=== PATIENT | female | born 1980 | race Caucasian/White ===

== ENCOUNTER 2016-09-10 20:44 | Inpatient (IN) | payer OTHER ==
--- NOTE | ~2016-09-10 | PA ---
Unit #: [id number] #: [id number] Patient: WAYNE CORTES [id number] [facility] [place] [address] [id number] I MR#: [id number] NAME: WAYNE CORTES ROOM: [facility] Age: 36 Sex: F Admission Date: 09/10/2016 : 1980 Date of Assessment: Attending Physician: Riki Camarillo M.D. Admitting Physician: Riki Camarillo M.D. Primary Care Physician: Primary Care Physician No PSYCHIATRIC ASSESSMENT INFORMANT The patient, reliability poor; chart, reliability good. CHIEF COMPLAINT Substance abuse, history of addiction. HISTORY OF PRESENT ILLNESS Ms. Darron Cortes is a 36-year-old female. The patient has a history of inpatient treatment at [facility] krysten Anderson, opioid replacement therapy, inpatient at [facility], lives with boyfriend and his mother. The patient presented with polysubstance abuse, presented with opioid withdrawal, reported going to methadone clinic for several months, and recently inpatient at [facility] on medical floor having seizure and sustaining a skull injury and resulted in craniotomy. The patient was discharged from [facility] on 09/03/2016. The patient received last dose of methadone there. The patient has been off her methadone and taking her prescription painkiller. The patient reports she was prescribed in [facility] after surgery. The patient was using heroin off the street. The patient reported last use of opioids 3 days ago. The patient reported withdrawal symptoms such as restlessness, muscle pain, sweating, piloerection of arm, cold sweats, depressed mood, poor concentration, but denied any suicidal or homicidal ideation or psychotic symptom needing inpatient admission at this time for psychiatric stabilization. PAST PSYCHIATRIC HISTORY Remarkable for history of previous inpatient treatment in 2009 at [facility], opioid replacement therapy in 2017, methadone clinic, inpatient at [facility], inpatient at [facility]. FAMILY HISTORY AND SOCIAL HISTORY The patient lives with boyfriend. No history of any abuse. Family psychiatric illness is remarkable for history of substance abuse in other family members. MEDICAL HISTORY Remarkable for history of sustaining head injury resulted in craniotomy, history of seizure. Musculoskeletal; muscle strength and tone, no atrophy or abnormal movement. Gait abnormal and walks with the help of a walker. MEDICATION HISTORY The patient is on Keppra 500 mg b.i.d. and ibuprofen. Unit #: [id number] #: [id number] Patient: WAYNE CORTES ALLERGIES No known drug allergies. SUBSTANCE ABUSE HISTORY The patient reported tobacco use, age of onset 13; alcohol, age of onset 13; opioid, age of onset 18; amphetamine, age of onset 18; prescription medication, age of onset 16; methadone, age of onset 22. The patient reported abdominal cramping, diarrhea, depressed mood, headache, restlessness, history of blackout, history of withdrawal symptoms, history of IV drug use. REVIEW OF SYSTEMS HEENT: Eyes clear. Ears, nose, mouth, and throat clear. CARDIOVASCULAR: Unremarkable. RESPIRATORY: Unremarkable. GI: Unremarkable. : Unremarkable. SKIN: Unremarkable. LYMPH NODE: Unremarkable. NEUROLOGIC: Unremarkable. ENDOCRINE: Unremarkable. HEMATOLOGIC: Unremarkable. ALLERGIC: Unremarkable IMMUNOLOGIC: Unremarkable. MUSCULOSKELETAL: Muscle strength and tone, no atrophy or abnormal movement. Gait abnormal. MENTAL STATUS EXAMINATION CONSTITUTIONAL: Measurement of vital signs; temperature 98.5, pulse 91, respiratory rate 16, and blood pressure 89/54. GENERAL APPEARANCE: The patient dressed casually. Hygiene and grooming, poor. No facial deformity noted. PSYCHIATRIC EXAMINATION Description of speech, slow. Description of thought process, circumstantial. Description of association, guarded and paranoid, but denied any thoughts of harming self or others. Description of the patient's judgment concerning everyday activity, poor, social situation poor, concerning psychiatric condition poor. Complete mental status examination: Oriented in time, place, and person. Attention span and concentration, poor. Able to repeat object. Fund of knowledge, poor. Vocabulary poor. Mood and affect, sad and dysphoric. Insight and judgment, poor. ASSETS AND LIABILITIES Assets: The patient is articulate, able to take care of her ADL. Liability: History of substance abuse and depression. ADMITTING DIAGNOSES Psychiatric: Opioid use disorder, severe, F11.20. Mood disorder, not otherwise specified, F32.9. Secondary Diagnosis: Deferred. Medical Diagnosis: History of seizures, skull fracture, hepatitis C. Stressors: Psychosocial stressors. Unit #: [id number] #: [id number] Patient: WAYNE CORTES PSYCHIATRIC PLAN, TREATMENT GOAL, AND DISCHARGE PLAN 1. Advised to admit the patient on the inpatient unit. Provide safe, supportive, and structured environment. 2. Ordered labs; CBC, CMP, UA, UDS. 3. Precaution for seizure, detox protocol, detox monitoring. 4. If needed, consider further adjustment of medication. The patient is to attend all the programing on the inpatient unit. Treatment goal is to attain euthymic mood and complete detox. DISCHARGE PLAN Plan to stabilize the patient and consider program such as [facility]. ESTIMATED LENGTH OF STAY 3 to 5 days. Dictated by... Riki Camarillo M.D. SUNIL/jean carlos TD: 09/12/2016 04:17 JOB #: [id number] PSYCHIATRIC ASSESSMENT X Riki Camarillo MD PSYCHIATRIC ASSESSMENT
--- NOTE | ~2016-09-10 | DS ---
Unit #: [id number] #: [id number] Patient: WAYNE MORAN [id number] [facility] [address] [place] [address] [id number] I MR#: [id number] NAME: WAYNE MORAN. ROOM: [facility] Age: 36 Sex: F Admission Date: 09/10/2016 : 1980 Discharge Date: 09/12/2016 Attending Physician: Riki Camarillo M.D. Primary Care Physician: Primary Care Physician No DISCHARGE SUMMARY REASON FOR ADMISSION Detox from opioid and depression. DIAGNOSTIC STUDIES LABORATORY RESULTS: Remarkable for albumin 3.3. Hemoglobin 10.7. Urine drug screen positive for opioid. HOSPITAL COURSE The patient was admitted to inpatient unit on 09/10/2016 and discharged on 09/12/2016. The patient was treated on the inpatient unit with detox protocol, expressive therapy, chemical dependency group, and occupation therapy. The patient responded well with the above modalities of treatment. Subsequently, the patient was discharged with a plan to follow up in outpatient program and the patient was requested to follow up through [facility]. DISCHARGE MEDICATIONS Keppra 500 mg b.i.d. for seizure. DISCHARGE DIAGNOSES Psychiatric: 1. Opioid use disorder, severe, F11.20. 2. Mood disorder, not otherwise specified, F32.9. Secondary diagnosis: Deferred. Medical diagnoses: History of seizure, skull fracture, hepatitis C. Stressors: Psychosocial stressors. DISCHARGE INSTRUCTIONS The patient is to follow up in outpatient clinic as per psychiatric social worker supervisor. CONDITION ON DISCHARGE The patient was pleasant and cooperative. Denied any thoughts of harming self or others or any psychotic symptom. DIET AND ACTIVITY As tolerated. Dictated by... Riki Camarillo M.D. Unit #: [id number] #: [id number] Patient: WAYNE MORAN SZC/modl TD: 09/12/2016 22:01 JOB #: [id number] DISCHARGE SUMMARY X Riki Camarillo MD X DISCHARGE SUMMARY
--- NOTE | ~2016-09-10 | CO ---
Unit #: [id number] #: [id number] Patient: ALEXUS MORAN [id number] [place] [address] [id number] I MR#: [id number] NAME: ALEXUS MORAN ROOM: [facility] Age: 36 Sex: F Admission Date: 09/10/2016 : 1980 Attending Physician: Riki Camarillo M.D. Primary Care Physician: Primary Care Physician No Consultation Date: 09/11/2016 CONSULTATION REPORT SUBJECTIVE Alexus is a 36-year-old admitted because of her drug use, which included IV heroin. She gave history of cranial surgery on 08/31/2016 after she sustained a fractured skull. She is complaining of pain at the surgical site. We have been asked to assess and give recommendations. OBJECTIVE GENERAL: Alert, well nourished, in no apparent distress. VITAL SIGNS: Blood pressure 120/70, heart rate 80, respirations 16, and T-max 98.6. HEENT: Normocephalic except she does have a significant surgical scar along the left sikh extending to behind her ear. The area is well healed. Sutures/randell have been removed. There is no increased redness, swelling, heat, or pus noted. ASSESSMENT Pain along a surgical site that is 10 days old. PLAN She has ibuprofen already ordered and should continue this p.r.n. Dictated by... Leila Bowen P.A.-C. for Susana Romero/jean carlos TD: 09/17/2016 21:16 JOB #: [id number] CONSULTATION REPORT X Leila Bowen X CONSULTATION REPORT
--- NOTE | ~2016-09-10 | HP ---
Unit #: [id number] #: [id number] Patient: ALEXUS MORAN [id number] [place] [address] [id number] I MR#: [id number] NAME: ALEXUS MORAN ROOM: 74 Age: 36 Sex: F Admission Date: 09/10/2016 : 1980 Attending Physician: Riki Camarillo M.D. Admitting Physician: Riki Camarillo M.D. Primary Care Physician: Primary Care Physician No HISTORY AND PHYSICAL HISTORY OF PRESENT ILLNESS Alexus is a 36 year old, admitted to [facility] because of her continued polysubstance abuse, which includes IV heroin. PAST MEDICAL HISTORY 1. Long history of opioid abuse to include IV heroin. 2. History of withdrawal seizures. PAST SURGICAL HISTORY 1. section x1. 2. Cranial surgery, 08/31/2016 after she sustained a fractured skull. ALLERGIES No known drug allergies. SOCIAL HISTORY She smokes on occasion, drinks alcohol, occasionally admits to long history of illicit substance abuse to include IV heroin. FAMILY HISTORY Medically noncontributory. REVIEW OF SYSTEMS CONSTITUTIONAL: No fever or chills. HEENT: Denies any sore throat, ear pain or runny nose. CARDIOVASCULAR: Denies chest pain, irregular heart rhythm or palpitations. CHEST: Denies shortness of breath or cough. No hemoptysis. GASTROINTESTINAL: Denies nausea, vomiting, diarrhea or chronic constipation. ENDOCRINE: Denies history of increased thirst or urination. No recent significant weight loss or gain. GENITOURINARY: Denies dysuria, frequency, or hematuria. SKIN: Denies any rashes. HEMATOLOGIC: Denies history of increased bleeding or bruising. MUSCULOSKELETAL: Denies any hot, swollen joints. No generalized muscle pain. NEUROLOGIC: Denies problems with vision or speech. No frequent, severe headaches. No numbness, tingling or weakness in any extremities. Denies loss of bladder or bowel control. CURRENT MEDICATIONS 1. Detox protocol 2. Keppra 500 mg b.i.d. Unit #: [id number] #: [id number] Patient: ALEXUS MORAN 3. Ibuprofen 800 mg q.8h p.r.n. 4. Genaced two tablets q.6h p.r.n. PHYSICAL EXAMINATION GENERAL: Alert, well-nourished, and no apparent distress. VITAL SIGNS: Blood pressure 100/60, heart rate 80, respirations 16, and temperature 98.6. WEIGHT: 115 pounds. HEIGHT: 5 feet 11 inches. SKIN: Warm and dry without rash or lesion. HEENT: Normocephalic except she has significant surgical scar along the left baptism extending to behind her ear. The area is well healed. Sutures/randell have been removed. NECK: Supple without lymphadenopathy or thyromegaly. HEART: Regular rate and rhythm without murmur. LUNGS: Clear. ABDOMEN: Soft, nontender. : Not done. EXTREMITIES: No evidence of cyanosis, clubbing or edema. Moves all without focal deficit. NEUROLOGICAL: Grossly within normal limits. Cranial Nerves: II: Visual burnham are intact. III, IV AND : Extraocular movements are intact. Pupils are equal, round and reactive to light. V: Facial sensation is grossly normal. VII: Facial movements and expression are normal. VIII: Auditory acuity grossly intact. IX, X: Uvula is midline. Phonation is normal. XI: Patient shrugs shoulders and turns head normally. XII: Tongue protrudes in the midline. Sensory and Motor Function: Sensory and motor sensation is grossly normal. Motor: moves all extremities well. Coordination: Gait is normal. Deep Tendon Reflexes: Intact. IMPRESSION Psychiatric admission. RECOMMENDATIONS Psychiatric, per psychiatrist. MEDICAL I see no contraindications to participating in facility's activities. MEDICAL PROGNOSIS Good. MEDICAL CONDITION Stable. Dictated by... Leila Bowen P.A.-C. for Susana Romero/dania TD: 09/12/2016 05:01 JOB #: [id number] Unit #: [id number] #: [id number] Patient: ALEXUS MORAN HISTORY AND PHYSICAL X Leila Bowen HISTORY AND PHYSICAL
[~2016-09-10 20:44] MED LIST: ALPRAZOLAM PO; AUGMENTIN PO; BACTRIM DS TABL1 TA1 PO; MOTRIN400 MG PO
[2016-09-11 09:38] LABS: BASOPHIL% 0.7 % (0-2.5); EOSINOPHIL# 0.2 X10e3 (0-0.7); EOSINOPHIL% 2.8 % (0.0-7.0); HEMATOCRIT 32.9 % (35.0-45.0); HEMOGLOBIN 10.7 gm/dL (12.0-16.0); LYMPHOCYTE# 1.7 X10e3 (1.0-3.5); LYMPHOCYTE% 29.5 % (17.0-45.0); MEAN CELL VOLUME 90.1 FL (83-96); MEAN CORPUSCULAR HEMOGLOBIN 29.3 PG (28-34); MEAN CORPUSCULAR HGB CONC 32.5 g/dL (30-36); MEAN PLATELET VOLUME 9.6 FL (6.5-11.5); MONOCYTE# 0.5 X10e3 (0-1.0); MONOCYTE% 8.9 % (3.0-12.0); NEUTROPHIL# 3.4 X10e3 (1.5-7.1); NEUTROPHIL% 58.1 % (40-75); PLATELET COUNT 344 X10e3 (140-420); RED BLOOD COUNT 3.65 X10e (3.90-5.30); RED CELL DISTRIBUTION WIDTH 16.6 % (11.0-15.5); WHITE BLOOD COUNT 5.9 X10e3 (4.0-10.5)
[2016-09-11 09:59] LABS: DIFF IND NO
[2016-09-11 10:02] LABS: THYROID STIMULATING HORMONE 1.29 uIU/ml (0.34-5.60)
[2016-09-11 10:07] LABS: ALBUMIN SERUM 3.3 g/dL (3.5-5.0); ALKALINE PHOSPHATASE 72 U/L (32-92); ALT (SGPT) 12 U/L (10-40); AST (SGOT) 17 U/L (10-42); BILIRUBIN,TOTAL 0.5 mg/dL (0.2-2.0); BLOOD UREA NITROGEN 12 mg/dL (9-23); CALCIUM SERUM 9.6 mg/dL (8.4-10.2); CARBON DIOXIDE 24 mmol/L (22-31); CHLORIDE 105 mmol/L (100-111); CREATININE SERUM 0.8 mg/dL (0.6-1.4); GLOM FILT RATE Estimated ABOVE60 mL/min (>60); GLUCOSE FASTING 92 mg/dL (70-110); POTASSIUM 3.9 mmol/L (3.5-5.1); SODIUM 141 mmol/L (135-145)
[2016-09-11 10:15] LABS: FREE THYROXIN (T4) 0.85 ng/dL (0.58-1.64)
== END 2016-09-12 11:00 | disposition home or self-care (01) | DRG 897 ==
LOC: P1E 20:44
PROVIDERS: Psychiatry & Neurology Psychiatry
DX: F11.20 Opioid dependence, uncomplicated (principal); F39 Unspecified mood [affective] disorder; F17.210 Nicotine dependence, cigarettes, uncomplicated
CPT/HCPCS: 80053; 84439; 84443; 84703; 85025; 86592

== ENCOUNTER 2016-12-16 17:51 | Inpatient (IN) | payer OTHER ==
--- NOTE | ~2016-12-16 | DS ---
Unit #: [id number] #: [id number] Patient: WAYNE MORAN [id number] [facility] [address] [place] [address] [id number] I MR#: [id number] NAME: WAYNE MORAN. ROOM: [facility] Age: 36 Sex: F Admission Date: 12/16/2016 : 1980 Discharge Date: 12/20/2016 Attending Physician: Riki Camarillo M.D. Primary Care Physician: Generic Doctor Not In System DISCHARGE SUMMARY REASON FOR ADMISSION Depression. DIAGNOSTIC STUDIES LABORATORY RESULTS: Albumin 3.4, AST 91, and ALT 94. HOSPITAL COURSE The patient was admitted to inpatient unit on 12/16/2016 and discharged on 12/20/2016. The patient was treated on the inpatient unit with group therapy, individual therapy, and medication management. The patient responded well with the above modalities of treatment. The patient was subsequently discharged with a plan to follow up in outpatient clinic. DISCHARGE MEDICATIONS Keppra 500 mg b.i.d. for seizure and Celexa 20 mg daily for depression. DISCHARGE DIAGNOSES Psychiatric: 1. Major depressive disorder, recurrent, severe, F33.2. 2. Alcohol use disorder, severe, F10.20. 3. Opioid use disorder, severe, F11.20. Secondary diagnosis: Deferred. Medical diagnoses: 1. History of seizure disorder. 2. Hepatitis C. Stressors: Psychosocial stressors. DISCHARGE INSTRUCTIONS The patient is to follow up in outpatient clinic as per social sciences chair. CONDITION ON DISCHARGE The patient was pleasant and cooperative. Denied any psychotic symptom or any suicidal ideation. PROGNOSIS Guarded. DIET AND ACTIVITY As tolerated. Dictated by... Unit #: [id number] #: [id number] Patient: WAYNE MORAN Susana Paz/jean carlos TD: 12/21/2016 04:03 JOB #: [id number] DISCHARGE SUMMARY Page 1 of 1 X Riki Camarillo MD DISCHARGE SUMMARY
--- NOTE | ~2016-12-16 | PN ---
Unit #: [id number] #: [id number] Patient: WAYNE MORAN [id number] [facility] [address] [place] [address] [id number] I MR#: [id number] NAME: WAYNE MORAN. ROOM: 83 Age: 36 Sex: F Admission Date: 12/16/2016 : 1980 Attending Physician: Riki Camarillo M.D. Admitting Physician: Riki Camarillo M.D. Primary Care Physician: Generic Doctor Not In System [facility] PROGRESS NOTES DATE 12/18/2016 DISCUSSION Ms. Vaughan is a 36-year-old female seen on 12/18/2016. Patient interviewed. Chart reviewed. Obtained information from nursing staff. Patient compliant, cooperative, able to maintain safe behavior. Complete review of system unremarkable. MENTAL STATUS EXAMINATION General appearance, patient dressed casually. Attention span, concentration fair. Oriented in place and person. Mood and affect labile. Speech monotone. Thought process concrete. Patient denied any thoughts of harming self or others. Recent and remote memory poor. Insight and judgement poor. DIAGNOSIS Mood disorder NOS. ASSESSMENT/PLAN Advised to continue with current medication and therapeutic protocol. If needed, consider further adjustment of medication. Dictated by... Susana Paz/francesca TD: 12/19/2016 20:18 JOB #: [id number] Unit #: [id number] #: [id number] Patient: WAYNE MORAN [facility] PROGRESS NOTES Page 1 of 1 X Riki Camarillo MD X PROGRESS NOTE
--- NOTE | ~2016-12-16 | PN ---
Unit #: [id number] #: [id number] Patient: ALEXUS CORTES [id number] [facility] [address] [place] [address] [id number] I MR#: [id number] NAME: ALEXUS CORTES. ROOM: [facility] Age: 36 Sex: F Admission Date: 12/16/2016 : 1980 Attending Physician: Riki Camarillo M.D. Admitting Physician: Riki Camarillo M.D. Primary Care Physician: Generic Doctor Not In System [facility] PROGRESS NOTES DATE OF SERVICE 12/19/16 DISCUSSION Ms. Alexus Cortes is a 36-year-old female seen on 12/19/16. Patient interviewed, chart reviewed. I obtained information from nursing staff. Patient compliant, cooperative. Patient was scheduled to be discharged but then reported that she is having suicidal ideation. Subsequently, discharge was postponed. COMPLETE REVIEW OF SYSTEMS Unremarkable. MENTAL STATUS EXAMINATION GENERAL APPEARANCE: Patient dressed casually. ATTENTION SPAN AND CONCENTRATION: Fair. Oriented in place and person. MOOD AND AFFECT: Sad, dysphoric. SPEECH: Monotone. THOUGHT PROCESS: Jones. Patient denied any thoughts of harming others, but mentioned having thoughts of harming herself, therefore discharge canceled. RECENT AND REMOTE MEMORY: Poor. INSIGHT AND JUDGMENT: Poor. DIAGNOSES Major depressive disorder, recurrent Alcohol use disorder, severe ASSESSMENT/PLAN Advised to continue with current medication and therapeutic protocol. If needed, consider further adjustment in medication. Consider discharge tomorrow. Dictated by... Susana Paz/jillian TD: 12/20/2016 23:06 Unit #: [id number] #: [id number] Patient: ALEXUS CORTES JOB #: [id number] [facility] PROGRESS NOTES Page 1 of 1 X Riki Camarillo MD PROGRESS NOTE
--- NOTE | ~2016-12-16 | HP ---
Unit #: [id number] #: [id number] Patient: ALEXUS MORAN [id number] [place] [address] [id number] I MR#: [id number] NAME: ALEXUS MORAN ROOM: [facility] Age: 36 Sex: F Admission Date: 12/16/2016 : 1980 Attending Physician: Riki Camarillo M.D. Admitting Physician: Riki Camarillo M.D. Primary Care Physician: Generic Doctor Not In System HISTORY AND PHYSICAL HISTORY OF PRESENT ILLNESS Alexus is a 36 year old admitted to [facility] because of her continued polysubstance abuse which includes heroin and alcohol. She has had other admissions to this facility for the same. PAST MEDICAL HISTORY 1. Long history of illicit substance abuse to include IV heroin. 2. History of withdrawal seizures. PAST SURGICAL HISTORY 1. x1. 2. Cranial surgery, 08/31/2016 after a skull fracture. ALLERGIES No known drug allergies. SOCIAL HISTORY Smokes on occasion. Drinks alcohol frequently to excess and admits to a history of illicit substance abuse to include IV heroin. FAMILY HISTORY Medically noncontributory. REVIEW OF SYSTEMS CONSTITUTIONAL: No fever or chills. HEENT: Denies any sore throat, ear pain or runny nose. CARDIOVASCULAR: Denies chest pain, irregular heart rhythm or palpitations. CHEST: Denies shortness of breath or cough. No hemoptysis. GASTROINTESTINAL: Denies nausea, vomiting, diarrhea or chronic constipation. ENDOCRINE: Denies history of increased thirst or urination. No recent significant weight loss or gain. GENITOURINARY: Denies dysuria, frequency, or hematuria. SKIN: Denies any rashes. HEMATOLOGIC: Denies history of increased bleeding or bruising. MUSCULOSKELETAL: Denies any hot, swollen joints. No generalized muscle pain. NEUROLOGIC: Denies problems with vision or speech. No frequent, severe headaches. No numbness, tingling or weakness in any extremities. Denies loss of bladder or bowel control. CURRENT MEDICATIONS Unit #: [id number] #: [id number] Patient: ALEXUS MORAN 1. Detox protocol 2. Keppra 500 mg b.i.d. PHYSICAL EXAMINATION GENERAL: Alert, well-nourished, in no apparent distress. VITAL SIGNS: Blood pressure 100/64, heart rate 80, respirations 16, temperature 98.6. WEIGHT: 110 pounds. HEIGHT: 4'11". SKIN: Warm and dry without rash or lesion. HEENT: Normocephalic. TMs not viewed. Oral and nasal passages clear. Conjunctivae clear. Pupils equal, round and reactive to light and accommodation. Extraocular movements intact. NECK: Supple without lymphadenopathy or thyromegaly. HEART: Regular rate and rhythm without murmur. LUNGS: Clear. ABDOMEN: Soft, nontender. : Not done. EXTREMITIES: No evidence of cyanosis, clubbing or edema. Moves all extremities without focal deficit. NEUROLOGICAL: Grossly within normal limits. Cranial Nerves: II: Visual burnham are intact. III, IV AND : Extraocular movements are intact. Pupils are equal, round and reactive to light. V: Facial sensation is grossly normal. VII: Facial movements and expression are normal. VIII: Auditory acuity grossly intact. IX, X: Uvula is midline. Phonation is normal. XI: Patient shrugs shoulders and turns head normally. XII: Tongue protrudes in the midline. Sensory and Motor Function: Sensory and motor sensation is grossly normal. Motor: moves all extremities well. Coordination: Gait is normal. Deep Tendon Reflexes: Intact. IMPRESSION Psychiatric admission RECOMMENDATIONS PSYCHIATRIC: Per psychiatrist. MEDICAL: I see no contraindications to participating in facility's activities. MEDICAL PROGNOSIS Good. MEDICAL CONDITION Stable. Dictated by... Leila Bowen P.A.-C. for Susana Romero/nohemy TD: 12/18/2016 00:21 Unit #: [id number] #: [id number] Patient: ALEXUS MORAN JOB #: [id number] HISTORY AND PHYSICAL Page 1 of 1 X Leila Bowen X HISTORY AND PHYSICAL
--- NOTE | ~2016-12-16 | PA ---
Unit #: [id number] #: [id number] Patient: ALEXUS CORTES [id number] [place] [address] [id number] I MR#: [id number] NAME: ALEXUS CORTES [facility] Age: 36 Sex: F Admission Date: 12/16/2016 : 1980 Date of Assessment: Attending Physician: Riki Camarillo M.D. Admitting Physician: Riki Camarillo M.D. Primary Care Physician: Generic Doctor Not In System PSYCHIATRIC ASSESSMENT INFORMANTS The patient reliability, fair informant and chart reliability, good. CHIEF COMPLAINT Depression. HISTORY OF PRESENT ILLNESS Ms. Alexus Cortes is a 36-year-old female, presented with the above-mentioned complaint. The patient has a history of previous multiple treatment for detox, [facility]. Currently, unemployed. The patient reported using alcohol, amphetamine, and opioids. Feeling sad and depressed. The patient was admitted on a 72-hour hold. The patient was brought by her boyfriend, attempted to walk in front of the moving car. The patient reported that was a suicide attempt and also tried to take intentional overdose in the last 24 hours. The patient reported that she drinks two-fifth of alcohol and 1 g of heroin. The patient has also been using methamphetamine. Endorsed feeling of hopelessness, worthlessness, and suicidal ideation; therefore, needed inpatient admission at this time for psychiatric stabilization. PAST PSYCHIATRIC HISTORY Remarkable for history of multiple previous treatment at [facility], [facility], and [facility]. FAMILY HISTORY AND SOCIAL HISTORY The patient has a good support from the family. No history of abuse. MEDICAL HISTORY Remarkable for history of hepatitis C and seizure disorder. MEDICATION HISTORY None. ALLERGIES No known drug allergies. SUBSTANCE ABUSE HISTORY The patient reported using tobacco, age of onset 13; alcohol, age of onset 11; marijuana, age of onset 13; crack cocaine, age of onset 17; opioid, age of onset 14; amphetamine, age of onset 17; benzodiazepine, age of onset 16; and methadone, age of onset 34. The patient reported tremor, abdominal cramping, diaphoresis, diarrhea, headache, irritability, poor Unit #: [id number] #: [id number] Patient: ALEXUS CORTES appetite, and poor concentration. REVIEW OF SYSTEMS HEENT: Eyes, clear. Ears, nose, mouth, and throat; clear. CARDIOVASCULAR: Unremarkable. RESPIRATORY: Unremarkable. GI: Unremarkable. : Unremarkable. SKIN: Unremarkable. LYMPH NODE: Unremarkable. NEUROLOGIC: Unremarkable. ENDOCRINE: Unremarkable. HEMATOLOGIC: Unremarkable. ALLERGIC/IMMUNOLOGIC: Unremarkable. MUSCULOSKELETAL: Muscle strength and tone, no atrophy or abnormal movement. Gait normal. MENTAL STATUS EXAMINATION CONSTITUTIONAL: Measurement of vital signs; temperature 98.0, heart rate 68, respiratory rate 16, oxygen saturation 97%, and blood pressure 101/65. GENERAL APPEARANCE: The patient's hygiene and grooming, fair. The patient did not show any facial deformity. MUSCULOSKELETAL: Please see above. PSYCHIATRIC EXAMINATION Description of speech, regular rate and normal volume. Description of thought process, goal directed. Description of association, intact. Description of abnormal psychotic thinking; somewhat guarded and paranoid, but denied any thoughts of harming others. Having suicidal ideation and mood lability. Description of the patient's judgment: Concerning everyday activity, poor. Social situation, poor. Concerning psychiatric condition, poor. Complete mental status examination; oriented in time, place, and person. Recent and remote memory, fair. Attention span and concentration, fair. Language, intact. Fund of knowledge, fair. Vocabulary, fair. Mood and affect, sad and dysphoric. Insight and judgment, fair to poor. ASSETS AND LIABILITIES Assets, the patient is articulate and able to take care of her ADL. Liability, history of substance abuse and depression. ADMITTING DIAGNOSES Psychiatric: Major depressive disorder, recurrent, severe. F33.2; alcohol use disorder, severe, F10.20; and opioid use disorder, severe, F11.20. Secondary diagnosis: Deferred. Medical diagnoses: History of seizure disorder and hepatitis C. Stressors: Psychosocial stressors. PSYCHIATRIC PLAN AND TREATMENT GOAL AND DISCHARGE PLAN 1. Advised to admit the patient on the inpatient unit. Provide safe, supportive, and structured environment. 2. Ordered labs; CBC, CMP, UA, UDS, detox protocol, and detox monitoring. Advised to resume the patient's Keppra 500 mg b.i.d. and doxepin 100 mg at bedtime for sleep. Plan to consider SSRI if needed. The patient to Unit #: [id number] #: [id number] Patient: ALEXUS CORTES attend all the programing on the inpatient unit, group therapy, and individual therapy. TREATMENT GOAL To attain euthymic mood, gain insight into her problem, and learn coping skills. DISCHARGE PLAN Plan to stabilize the patient and consider followup in outpatient program. ESTIMATED LENGTH OF STAY 3 to 5 days. Dictated by... Susana Paz/jean carlos TD: 12/17/2016 21:08 JOB #: [id number] PSYCHIATRIC ASSESSMENT Page 1 of 1 X Riki Camarillo MD X PSYCHIATRIC ASSESSMENT
[2016-12-17 09:49] LABS: BASOPHIL% 0.5 % (0-2.5); EOSINOPHIL# 0.1 X10e3 (0-0.7); EOSINOPHIL% 1.5 % (0.0-7.0); HEMATOCRIT 35.6 % (35.0-45.0); HEMOGLOBIN 11.4 gm/dL (12.0-16.0); LYMPHOCYTE% 52.3 % (17.0-45.0); MEAN CELL VOLUME 80.9 FL (83-96); MEAN CORPUSCULAR HEMOGLOBIN 25.9 PG (28-34); MEAN PLATELET VOLUME 9.8 FL (6.5-11.5); MONOCYTE# 0.4 X10e3 (0-1.0); MONOCYTE% 11.9 % (3.0-12.0); NEUTROPHIL# 1.3 X10e3 (1.5-7.1); NEUTROPHIL% 33.8 % (40-75); PLATELET COUNT 215 X10e3 (140-420); RED BLOOD COUNT 4.39 X10e (3.90-5.30); RED CELL DISTRIBUTION WIDTH 15.9 % (11.0-15.5); WHITE BLOOD COUNT 3.8 X10e3 (4.0-10.5)
[2016-12-17 09:50] LABS: DIFF IND YES
[2016-12-17 10:11] LABS: ANISOCYTOSIS SL; PLATELET ESTIMATE NORMAL (NORMAL)
[2016-12-17 10:12] LABS: HYPOCHROMIA MOD; MICROCYTOSIS MOD
[2016-12-17 10:31] LABS: ALBUMIN SERUM 3.4 g/dL (3.5-5.0); BILIRUBIN,TOTAL 1.7 mg/dL (0.2-2.0); BUN/CREATININE RATIO 26.66; CALCIUM SERUM 9.6 mg/dL (8.4-10.2); CREATININE SERUM 0.6 mg/dL (0.6-1.4); GLOM FILT RATE Estimated 116.4 mL/min (>60); POTASSIUM 4.1 mmol/L (3.5-5.1); PROTEIN TOTAL SERUM 7.2 g/dL (6.0-8.3)
== END 2016-12-20 11:25 | DRG 885 ==
LOC: P1E 17:51
PROVIDERS: Psychiatry & Neurology Psychiatry
DX: F33.2 Major depressive disorder, recurrent severe without psychotic features (principal); F11.20 Opioid dependence, uncomplicated; R45.851 Suicidal ideations; F10.20 Alcohol dependence, uncomplicated; G40.909 Epilepsy, unspecified, not intractable, without status epilepticus; Z86.19 Personal history of other infectious and parasitic diseases; F17.210 Nicotine dependence, cigarettes, uncomplicated; F39 Unspecified mood [affective] disorder
CPT/HCPCS: 80053; 84703; 85025; 86592